=== PATIENT | female | born 1965 | race Caucasian/White ===

== ENCOUNTER 2018-11-25 19:50 | Emergency (ER) | payer OTHER, MEDICAID ==
[~2018-11-25] VITALS: Ht 152.4 cm; Wt 82.0 kg
[2018-11-25 20:24] VITALS: BP 150/68
[2018-11-25] MEDS ORDERED: KETOROLAC 60MG/2ML VIAL IM STA (21:24)
== END 2018-11-25 23:18 | disposition home or self-care (01) ==
LOC: ER 19:50
DX: M17.12 Unilateral primary osteoarthritis, left knee (principal); S83.8X2A Sprain of other specified parts of left knee, initial encounter; W01.0XXA Fall on same level from slipping, tripping and stumbling without subsequent striking against object, initial encounter; Y93.89 Activity, other specified; Y92.89 Other specified places as the place of occurrence of the external cause; R03.0 Elevated blood-pressure reading, without diagnosis of hypertension
CPT/HCPCS: 29515; 73562; 96372; 99283; J1885